=== PATIENT | male | born 1955 | race Caucasian/White ===

== ENCOUNTER 2019-10-29 00:20 | Outpatient (CLI) | payer BC, SELFPAY ==
[2019-10-29 17:00] LABS: SARS-CoV-2 RNA PCR Negative
== END 2019-10-29 00:21 | disposition home or self-care (01) ==
LOC: ANHCOVIDDT 00:20
PROVIDERS: PCP Internal Medicine; Visit Provider Surgery
DX: Z20.828 Contact with and (suspected) exposure to other viral communicable diseases (principal); Z01.812 Encounter for preprocedural laboratory examination
CPT/HCPCS: 87635; C9803; U0003

== ENCOUNTER 2019-10-31 00:28 | Day surgery (SDC) | payer BC, SELFPAY ==
[2019-10-26 13:52] VITALS: BMI 26.5
[2019-10-31 09:57] VITALS: BP 125/89; PULSE 80; RESP 18; TEMP 36.4; O2SAT 97; BMI 27.5
[2019-10-31] MEDS: LACTATED RINGERS 1,000 ML 150 ML IV CONT (10:09)
--- NOTE | 2019-10-31 10:33 | WPDANESEPPF ---
Anes - Initial Pre Proc Eval Procedure: Operation Date: 10/31/19 14:00 Proposed Procedures p Esophagogastroduodenoscopy - Kingsley Lanza MD Date/Time: 10/31/19 10:33 Surgeon: Kingsley Lanza MD Pre Op Diagnosis: GERD, dysphagia Patient Data Age: 63 Gender: M Height: 5 ft 10 in Weight: 87 kg Last Vital Signs Temp 36.4 C 10/31/19 09:57 Pulse 80 10/31/19 09:57 Resp 18 10/31/19 09:57 BP 125/89 10/31/19 09:57 Pulse Ox 97 10/31/19 09:57 Allergies Allergy/AdvReac Type Severity Reaction Status Date / Time No Known Allergies Allergy Verified 10/31/19 09:52 Home Medications Medication Instructions Recorded Confirmed Type rosuvastatin 10 mg PO DAILY 10/26/19 10/31/19 History tamsulosin 4 mg PO DAILY 10/26/19 10/31/19 History Patient hx anesthesia problems: none Family hx anesthesia problems: none [facility] Past Medical History Medical History (Updated 10/31/19 @ 10:33 by Conner Haley MD) Overweight Surgical History Surgical History (Updated 10/31/19 @ 10:33 by Conner Haley MD) H/O arthroscopic knee surgery Anes - Eval Final PreProcedure Day of Procedure 10/31/19 10:33 Patient weight: overweight Heart: regular rate and rhythm Lungs: clear to auscultation Airway: Mallampati scale class II and other (chipped #9 tooth) Neurological: alert and oriented Last oral intake: >/= 8 hours ASA classification: II Emergent: no Anesthetic plan: proceed Anesthesia type and monitoring: general GIVS and standard monitoring Informed Consent: The patient's anesthetic plan and its attendant risks and benefits were discussed with the patient/family/POA. Questions were solicited and answers provided to the satisfaction of the patient/family/POA.
[2019-10-31] MEDS: BENZOCAINE (*SP) 60 ML SPRAY CAN (HURRICAINE) 1 SPRAY MUCOUS MEM (11:22)
--- NOTE | 2019-10-31 11:22 | PM.HPGS ---
History of Present Illness History of Present Illness Consent: Risks, benefits, and alternatives of an upper GI endoscopy with possible biopsies have been discussed and questions answered. Patient agrees to proceed with procedure. Chief complaint: GERD, dysphagia Narrative: Omar Cross is a 63 year old male who has had a long history of GE reflux. He also has a lot of postnasal drip drainage in occasionally coughs up some blood. He does not like the way it looks. He does take some mechanical precautions to prevent GERD when he lays down to sleep. He is on a moped cares albeit only takes it p.r.n. does not take it routinely. He is referred by Dr. Sánchez his PCP at this time for upper GI endoscopy to rule out esophagitis / Proctor's esophagus and other upper GI problems. He knows we made test for H pylori. Review of Systems Constitutional: Constitutional: Reports no additional constitutional complaints, Reports fatigue and Denies malaise Eyes: Eyes: Denies change in vision and Denies loss of vision ENT: Reports Normal hearing present, Denies change in voice, Denies dizziness, Denies hoarseness and Denies sore throat Cardiovascular: Cardiovascular: Denies chest pain, Denies leg edema and Denies dyspnea Respiratory: Respiratory: Denies cough, Denies dyspnea and Denies wheezing Gastrointestinal: Gastrointestinal: Denies hematochezia, Denies change in bowel habits and Denies heartburn Genitourinary: Genitourinary: Denies urinary frequency and Denies urinary incontinence Neurologic: Reports Normal hearing present, Denies confusion, Denies dizziness, Denies loss of vision, Denies memory loss and Denies seizure-like activity Psychiatric: Psychiatric: Denies confusion, Denies depression and Denies memory loss Endocrine: Endocrine: Denies cold intolerance and Reports fatigue Hematologic/Lymphatic: Hematologic/Lymphatic: Denies easy bleeding and Denies easy bruising Allergic/Immunologic: Allergic/Immunologic: Denies wheezing PMFSH Past Medical History Medical History (Updated 10/31/19 @ 11:47 by Kingsley Lanza MD) GERD (gastroesophageal reflux disease) (Unknown) Overweight Post-nasal discharge Surgical History Surgical History (Updated 10/31/19 @ 10:33 by Conner Haley MD) H/O arthroscopic knee surgery Meds Home Medications and Allergies Home Medications Medication Instructions Recorded Confirmed Type rosuvastatin 10 mg PO DAILY 10/26/19 10/31/19 History tamsulosin 4 mg PO DAILY 10/26/19 10/31/19 History Allergies Allergy/AdvReac Type Severity Reaction Status Date / Time No Known Allergies Allergy Verified 10/31/19 09:52 Vital Signs Vital Signs - 24 hr 10/31/19 09:57 Temperature 36.4 C Pulse Rate 80 Respiratory Rate 18 Blood Pressure 125/89 Pulse Oximetry 97 Exam Const: General: cooperative, healthy appearing, no acute distress, well developed and alert; No confusion Nutritional Appearance: well nourished Orientation/consciousness: patient oriented x3 and No confusion Limitations: no limitations HENMT: Head: normal to inspection, normocephalic and atraumatic Ears: hearing grossly normal bilaterally General nose exam: Normal external nose present Face and sinus: no edema Mouth: Yes Normal oral and palatal mucosa present and Yes lip normal Throat: posterior oropharynx normal Eyes: General: appearance normal, both eyes and all related structures Sclera: sclerae normal Pupils: Equal, round and reactive pupils present EOM: EOMs intact bilaterally Neck: Neck: normal visual inspection, no lymphadenopathy, trachea midline and supple Resp: Effort & Inspection: normal respiratory effort and able to speak in complete sentences Auscultation: clear to auscultation bilaterally Cardio: Jugular venous distension: no JVD Rate: regular rate Rhythm: regular rhythm GI: Inspection: normal to inspection GI Palp: Yes Soft to palpation, No Tenderness to palpation present (GI), No Guard
[2019-10-31 11:50] VITALS: BP 118/71; PULSE 80; RESP 19; O2SAT 92
[2019-10-31 12:00] VITALS: BP 134/82; PULSE 78; RESP 25; O2SAT 94
[2019-10-31 12:07] VITALS: PULSE 79; RESP 23; O2SAT 95
== END 2019-10-31 12:40 | disposition home or self-care (01) ==
PROVIDERS: PCP Internal Medicine; Visit Provider Surgery
PROC: 0DJ08ZZ Inspection of Upper Intestinal Tract, Via Natural or Artificial Opening Endoscopic (ICD-10-PCS; CPT 43235; principal; 2019-10-31 14:00)
DX: K21.0 Gastro-esophageal reflux disease with esophagitis (principal); K31.7 Polyp of stomach and duodenum; K29.50 Unspecified chronic gastritis without bleeding; K29.80 Duodenitis without bleeding
CPT/HCPCS: 43239; 87081; 88305; J2704; J7120

== ENCOUNTER 2019-12-24 01:40 | Outpatient (CLI) | payer BC, SELFPAY ==
[2019-12-24 18:20] LABS: SARS-CoV-2 RNA PCR Negative
== END 2019-12-24 01:41 | disposition home or self-care (01) ==
LOC: ANHCOVIDDT 01:40
PROVIDERS: PCP Internal Medicine; Visit Provider Surgery
DX: Z01.812 Encounter for preprocedural laboratory examination (principal); Z11.59 Encounter for screening for other viral diseases
CPT/HCPCS: 87635; C9803; U0003

== ENCOUNTER 2019-12-26 01:14 | Day surgery (SDC) | payer BC, SELFPAY ==
[2019-12-20 14:54] VITALS: BMI 27.8
[2019-12-26 11:40] VITALS: BP 140/84; PULSE 73; RESP 18; TEMP 36.7; O2SAT 98
[2019-12-26] MEDS: LACTATED RINGERS 1,000 ML 150 ML IV CONT (11:48)
--- NOTE | 2019-12-26 12:35 | WPDANESEFPP ---
Anes - Eval Final PreProcedure Day of Procedure 12/26/19 12:35 Patient weight: overweight Heart: regular rate and rhythm Lungs: clear to auscultation Airway: Mallampati scale class II Neurological: alert and oriented Last oral intake: >/= 8 hours ASA classification: II Emergent: no Anesthetic plan: proceed Anesthesia type and monitoring: general GIVS and standard monitoring Informed Consent: The patient's anesthetic plan and its attendant risks and benefits were discussed with the patient/family/POA. Questions were solicited and answers provided to the satisfaction of the patient/family/POA.
--- NOTE | 2019-12-26 12:47 | WPDHPUPDATE1 ---
History and Physical Update Update Date/Time: 12/26/19 12:47 History and Physical has been reviewed, including an updated exam of the patient. There are NO changes in the patient's condition. Risks, benefits, and alternatives of an EGD with possible biopsies have been discussed and questions answered. Patient agrees to proceed with procedure.
[2019-12-26] MEDS: BENZOCAINE (*SP) 60 ML SPRAY CAN (HURRICAINE) 1 SPRAY MUCOUS MEM (12:52)
[2019-12-26 13:11] VITALS: BP 107/64; PULSE 79; RESP 15; O2SAT 97
[2019-12-26 13:21] VITALS: BP 110/72; PULSE 79; RESP 18; O2SAT 97
[2019-12-26 13:31] VITALS: BP 130/83; PULSE 78; RESP 16; O2SAT 97
== END 2019-12-26 13:45 | disposition home or self-care (01) ==
PROVIDERS: PCP Internal Medicine; Visit Provider Surgery
PROC: 0DJ08ZZ Inspection of Upper Intestinal Tract, Via Natural or Artificial Opening Endoscopic (ICD-10-PCS; CPT 43235; principal; 2019-12-26 13:00)
DX: Z09 Encounter for follow-up examination after completed treatment for conditions other than malignant neoplasm (principal); K22.70 Barrett's esophagus without dysplasia; K21.0 Gastro-esophageal reflux disease with esophagitis
CPT/HCPCS: 43239; 87081; 88305; J2405; J2704; J7120

== ENCOUNTER → 2020-07-19 01:21 | Outpatient (CLI) | payer BC, SELFPAY ==
[2020-07-19 19:48] LABS: SARS-CoV-2 RNA PCR Negative
== END ==
PROVIDERS: PCP Internal Medicine; Visit Provider Surgery
DX: Z01.812 Encounter for preprocedural laboratory examination (principal); Z20.822 Contact with and (suspected) exposure to COVID-19
CPT/HCPCS: C9803; U0003; U0005

== ENCOUNTER 2020-07-22 01:35 | Day surgery (SDC) | payer BC, SELFPAY ==
[2020-07-16 14:03] VITALS: BMI 27.5
[2020-07-22 11:06] VITALS: BP 140/89; PULSE 81; RESP 16; TEMP 36.7; O2SAT 98; BMI 27.9
[2020-07-22] MEDS: LACTATED RINGERS 1,000 ML 150 ML IV CONT (11:18)
--- NOTE | 2020-07-22 11:22 | WPDANESEPPF ---
Anes - Initial Pre Proc Eval Procedure: Operation Date: 07/22/20 12:30 Proposed Procedures p Esophagogastroduodenoscopy - Kingsley Lanza MD Date/Time: 07/22/20 11:22 Surgeon: Kingsley Lanza MD Pre Op Diagnosis: Dysphagia, GERD Patient Data Age: 64 Gender: M Height: 5 ft 10 in Weight: 88.3 kg Last Vital Signs Temp 36.7 C 07/22/20 11:06 Pulse 81 07/22/20 11:06 Resp 16 07/22/20 11:06 BP 140/89 07/22/20 11:06 Pulse Ox 98 07/22/20 11:06 Allergies Allergy/AdvReac Type Severity Reaction Status Date / Time No Known Allergies Allergy Verified 07/22/20 11:05 Home Medications Medication Instructions Recorded Confirmed Type tamsulosin 0.4 mg PO DAILY 10/26/19 07/22/20 History meloxicam 15 mg tablet 15 mg PO DAILY 12/05/19 07/22/20 History pantoprazole 40 mg PO DAILY 07/16/20 07/22/20 History rosuvastatin 10 mg PO DAILY 07/16/20 07/22/20 History Patient hx anesthesia problems: none Family hx anesthesia problems: none PMFSH Past Medical History Medical History GERD (gastroesophageal reflux disease) (Unknown) Overweight Post-nasal discharge Surgical History Surgical History H/O arthroscopic knee surgery History of esophagogastroduodenoscopy (EGD) Family History Family History Mother Colon cancer Father Heart attack Hypertension Social History Social History Smoking status: Never smoker Alcohol intake: current Substance use: never Substance use type: does not use Living arrangements: with family 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 Questions were solicited and answers provided to the satisfaction of the patient/family/POA.
--- NOTE | 2020-07-22 11:40 | PM.HPGS ---
History of Present Illness History of Present Illness Consent: Risks, benefits, and alternatives of an EGD with biopsies of the esophagus and GE junction have been discussed and questions answered. Patient agrees to proceed with procedure. Chief complaint: Dysphagia, GERD Narrative: Omar Cross is a 64 year old male who has a history of reflux esophagitis. 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 At this time he continues on a PPI once a day. He returns at this time for surveillance EGD and biopsies of his esophagus to watch out for dysplasia. At this time the patient states that his symptoms seem to be in fairly good control and he is still following precautions to try to reduce any reflux. Review of Systems Constitutional: Constitutional: Reports no additional constitutional complaints, Reports fatigue and Denies malaise Eyes: Eyes: Denies change in vision and Denies loss of vision ENT: Reports Normal hearing present, Denies change in voice, Denies dizziness, Denies hoarseness and Denies sore throat Cardiovascular: Cardiovascular: Denies chest pain, Denies leg edema and Denies dyspnea Respiratory: Respiratory: Denies cough, Denies dyspnea and Denies wheezing Gastrointestinal: Gastrointestinal: Denies hematochezia, Denies change in bowel habits and Denies heartburn Comments: History of GE reflux now controlled with medications Genitourinary: Genitourinary: Denies urinary frequency and Denies urinary incontinence Neurologic: Reports Normal hearing present, Denies confusion, Denies dizziness, Denies loss of vision, Denies memory loss and Denies seizure-like activity Psychiatric: Psychiatric: Denies confusion, Denies depression and Denies memory loss Endocrine: Endocrine: Denies cold intolerance and Reports fatigue Hematologic/Lymphatic: Hematologic/Lymphatic: Denies easy bleeding and Denies easy bruising Allergic/Immunologic: Allergic/Immunologic: Denies wheezing PMFSH Past Medical History Medical History GERD (gastroesophageal reflux disease) (Unknown) Overweight Post-nasal discharge Surgical History Surgical History H/O arthroscopic knee surgery History of esophagogastroduodenoscopy (EGD) Family History Family History Mother Colon cancer Father Heart attack Hypertension Social History Social History Smoking status: Never smoker Alcohol intake: current Substance use: never Substance use type: does not use Living arrangements: with family 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) Gender identity (if verbalized by the patient): Male Spiritual care concerns: No Meds Home Medications and Allergies Home Medications Medication Instructions Recorded Confirmed Type tamsulosin 0.4 mg PO DAILY 10/26/19 07/22/20 History meloxicam 15 mg tablet 15 mg PO DAILY 12/05/19 07/22/20 History pantoprazole 40 mg PO DAILY 07/16/20 07/22/20 History rosuvastatin 10 mg PO DAILY 07/16/20 07/22/20 History Allergies Allergy/AdvReac Type Severity Reaction Status Date / Time No Known Allergies Allergy Verified 07/22/20 11:05 Vital Signs Vital Signs - 24 hr 07/22/20 11:06 Temperature 36.7 C Pulse Rate 81 Respiratory Rate 16 Blood Pressure 140/89 Pulse Oximetry 98 Exam Const: General: cooperative, healthy appearing, no acute distress, well developed and alert; No confusion Nutritional Appearance: well nourished Orientation/consciousness: patient oriented x3 and No confusion Limitations: no limitations HENMT: Head: normal to inspection, normocephalic and atraumatic Ears: hearing grossly normal bilaterally General nose exam: Normal external nose present Face and sinus: no edema Mouth: Yes Normal oral and palatal muco
--- NOTE | 2020-07-22 12:28 | WPDHPUPDATE1 ---
History and Physical Update Update Date/Time: 07/22/20 12:28 History and Physical has been reviewed, including an updated exam of the patient. There are NO changes in the patient's condition. Risks, benefits, and alternatives have been discussed and questions answered. Patient agrees to proceed with procedure.
[2020-07-22] MEDS: BENZOCAINE (*SP) 60 ML SPRAY CAN (HURRICAINE) 1 SPRAY MUCOUS MEM (12:33)
[2020-07-22 12:54] VITALS: BP 103/64; PULSE 86; RESP 16; O2SAT 92
[2020-07-22 13:04] VITALS: BP 102/62; PULSE 83; RESP 18; O2SAT 91
[2020-07-22 13:14] VITALS: BP 117/68; PULSE 82; RESP 22; O2SAT 95
[2020-07-22 13:24] VITALS: BP 118/79; PULSE 78; RESP 20; O2SAT 95
== END 2020-07-22 13:41 | disposition home or self-care (01) ==
PROVIDERS: PCP Internal Medicine; Visit Provider Surgery
PROC: 0DJ08ZZ Inspection of Upper Intestinal Tract, Via Natural or Artificial Opening Endoscopic (ICD-10-PCS; CPT 43235; principal; 2020-07-22 12:30)
DX: R13.10 Dysphagia, unspecified (principal); K21.9 Gastro-esophageal reflux disease without esophagitis; K44.9 Diaphragmatic hernia without obstruction or gangrene; Z87.19 Personal history of other diseases of the digestive system; R09.82 Postnasal drip; K42.9 Umbilical hernia without obstruction or gangrene
CPT/HCPCS: 43239; 88305; C9803; J2704; J7120; U0003; U0005

== ENCOUNTER 2021-07-23 08:20 | Outpatient (CLI) | payer BC, SELFPAY ==
[2021-07-23 08:31] LABS: Basophils Absolute Auto 0.04 K/mm3 (0.00-0.10); Basophils Percent Auto 0.7 % (0.0-1.0); Eosinophils Absolute Auto 0.15 K/mm3 (0.02-0.50); Eosinophils Percent Auto 2.5 % (1.0-6.0); Hematocrit 43.4 % (40.0-54.0); Hemoglobin 14.2 g/dL (14.0-18.0); Immature Granulocyte Absolute 0.03 K/mm3 (0.00-0.00); Immature Granulocyte Percent A 0.5 % (0.0-0.0); Lymphocytes Absolute Auto 1.67 K/mm3 (1.10-4.50); Lymphocytes Percent Auto 27.5 % (18.0-42.0); Mean Corpuscular HGB Conc 32.7 g/dL (32.0-36.0); Mean Corpuscular Hemoglobin 26.2 pg (27.0-31.0); Mean Corpuscular Volume 79.9 fL (78.0-102.0); Mean Platelet Volume 9.1 fl (8.7-11.0); Monocytes Absolute Auto 0.36 K/mm3 (0.10-0.90); Monocytes Percent Auto 5.9 % (2.0-11.0); Neutrophils Absolute Auto 3.8 K/mm3 (1.7-7.2); Neutrophils Percent Auto 62.9 % (50.0-70.0); Platelet Count Result 342 K/mm3 (150-420); Red Blood Count 5.43 M/mm3 (4.70-6.10); Red Cell Distribution Width 13.9 % (11.6-14.4); White Blood Count 6.1 K/mm3 (4.8-10.8)
[2021-07-23 09:07] LABS: Alanine Aminotransferase 31 U/L (16-63); Albumin Level 3.8 g/dL (3.4-5.0); Alkaline Phosphatase 104 U/L (46-116); Anion Gap 12 mmol/L (8-16); Aspartate Amino Transferase 13 U/L (15-37); Bilirubin,Total 0.3 mg/dL (0.00-1.00); Blood Urea Nitrogen 12 mg/dL (7-18); Calcium 8.7 mg/dL (8.5-10.1); Carbon Dioxide 26 mmol/L (21-32); Chloride 107 mmol/L (98-108); Estimated Glomerular Filt Rate > 60; Glucose 107 mg/dL (70-99); Osmolality Calculated 299 mOsm/kg (285-295); Sodium 145 mmol/L (136-145); Total Protein 7.3 g/dL (6.4-8.2)
== END 2021-07-23 08:21 | disposition home or self-care (01) ==
LOC: CHSLAB 08:22
PROVIDERS: PCP Internal Medicine; Visit Provider Surgery
DX: Z01.818 Encounter for other preprocedural examination (principal)
CPT/HCPCS: 36415; 80053; 85025

== ENCOUNTER 2021-07-28 01:36 | Day surgery (SDC) | payer BC, SELFPAY ==
[2021-07-23 13:24] VITALS: BMI 29.7
[2021-07-28 11:13] VITALS: BP 151/87; PULSE 77; RESP 18; TEMP 36.1; O2SAT 93
[2021-07-28] MEDS: LACTATED RINGERS 1,000 ML 150 ML IV CONT (11:13)
--- NOTE | 2021-07-28 13:15 | WPDHPUPDATE1 ---
History and Physical Update Update Date/Time: 07/28/21 13:15 History and Physical has been reviewed, including an updated exam of the patient. There are NO changes in the patient's condition. Risks, benefits, and alternatives have been discussed and questions answered. Patient agrees to proceed with procedure.
[2021-07-28 13:53] VITALS: BP 133/83; PULSE 74; RESP 21; O2SAT 96
[2021-07-28 14:03] VITALS: BP 143/96; PULSE 72; RESP 19; O2SAT 98
[2021-07-28 14:13] VITALS: BP 152/96; PULSE 70; RESP 19; O2SAT 98
--- NOTE | 2021-07-28 14:49 | SUR.PHASEII ---
Per Dr. Lanza, pt can discharge home without him coming to talk to the pt. Dr. Lanza stated he will call the pt once he is back in the office if the pt decides not to wait to talk to him.
== END 2021-07-28 15:06 | disposition home or self-care (01) ==
PROVIDERS: PCP Internal Medicine; Visit Provider Surgery
PROC: 0DJ08ZZ Inspection of Upper Intestinal Tract, Via Natural or Artificial Opening Endoscopic (ICD-10-PCS; CPT 43235; principal; 2021-07-28 13:00)
DX: K21.00 Gastro-esophageal reflux disease with esophagitis, without bleeding (principal); K22.70 Barrett's esophagus without dysplasia; K42.9 Umbilical hernia without obstruction or gangrene
CPT/HCPCS: 43239; 88305; J2704; J7120

== ENCOUNTER 2024-09-03 00:44 | Day surgery (SDC) | payer MEDICARE, SELFPAY ==
[2024-08-30 11:06] VITALS: BMI 27.3
--- OUTSIDE RECORDS SUMMARY | 2024-09-03 00:47 | XMS_ITS | Clinical Summary ---
Author Organization [facility] Address [address] [place] [address] Care Team Providers Care Adult Educator Name Role Phone Nando Henry MD Unavailable [phone] Clarisse Sánchez MD Primary Care Provider [phone] Source Comments [facility],non-owned Affiliates and Associated Physician Practices is amultiple site organization consisting of ambulatory clinics and hospital sitesin [place], [place], [place] and [place]. This disclosure is being madepursuant to the Care Everywhere program and may not contain all information available regarding this patient. Last updated 18.[facility] Allergies No known active allergies Medications * Be aware that medications may not be up to date on this document. Alwaysverify current medications with the patient. TAMSULOSIN HCL PO Active Fluticasone Propionate (FLONASE NA) Active meloxicam (MOBIC) 15 MG tablet TAKE ONE TABLET BY MOUTH DAILY 30 tablet 5 06/16/2021 Active Active Problems Problem Noted Date Diagnosed Date Primary osteoarthritis of both knees 10/30/2019 Social History Tobacco Use Types Packs/Day Years Used Date Smoking Tobacco: Never Assessed Sex and Gender Information Value Date Recorded Sex Assigned at Not on file Legal Sex Male 3:51 PM CDT Gender Identity Not on file Sexual Orientation Not on file Last Filed Vital Signs Vital Sign Reading Time Taken Comments Blood Pressure - - Pulse - - Temperature - - Respiratory Rate - - Oxygen Saturation - - Inhaled Oxygen Concentration - - Weight 87.5 kg (193 lb) 10/30/2019 12:37 PM CDT Height 177.8 cm (5' 10 ) 10/30/2019 12:37 PM CDT Body Mass Index 27.69 10/30/2019 12:37 PM CDT Plan of Treatment Health Maintenance Due Date Last Done Comments COLOGUARD (AGES 45-75) - COL ON CA SCREENING 1957 COLON MONITORING 1957 COLONOSCOPY - COLON CA SCREENING 1957 CT COLONOGRAPHY - COLON CA SCREENING 1957 Colorectal Cancer Screening 1957 FIT - COLON CA SCREENING 1957 FLEX SIG - COLON CA SCREENING 1957 LIPID TESTING 1957 HEPATITIS C SCREENING 12/13/1975 DTAP/TDAP/TD VACCINES (1 - Tdap) 1976 PNEUMOCOCCAL VACCINE 50+ (1 of 1 - PCV) 12/18/2007 ZOSTER VACCINE (1 of 2) 12/18/2007 SCREENING FOR DIABETES 10/30/2019 COVID-19 VACCINE (1 - 2023-2 5 season) 2024 DEPRESSION SCREENING 05/16/2024 INFLUENZA VACCINE (Season Ended) 2025 Respiratory Syncytial Virus (RSV) Vaccine Pt: or over 60 yrs (1 - 1-dose 75+ series) 2032 HEPATITIS B VACCINE Aged Out No longe r eligible based on patient's age to complete this topic HIB VACCINE Aged Out No longer eligi ble based on patient's age to complete this topic HPV VACCINE Aged Out No longer eligi ble based on patient's age to complete this topic MENINGOCOCCAL (Group B) VACC INE SHARED DECISION-MAKING Aged Out No longer eligibl e based on patient's age to complete this topic MENINGOCOCCAL GROUPS A/C/Y/W VACCINE Aged Out No longer eligible b ased on patient's age to complete this topic Insurance [employer] Care Teams Adult Educator Relationship Specialty Start Date [place] Date Clarisse Sán[place] [id number] [place] [address] PCP - General 08/01/20 [place] [id number] [place] [address] Orthopedic Surgery 10/30/19
[2024-09-03 07:27] VITALS: BP 138/94; PULSE 69; RESP 16; TEMP 36.3; O2SAT 99
[2024-09-03] MEDS: LACTATED RINGERS 1,000 ML 150 ML IV CONT (07:38)
--- NOTE | 2024-09-03 07:58 | P.PNAN_ITS ---
Anes - Initial Pre Proc Eval Procedure: Operation Date: 09/03/24 08:30 Proposed Procedures p Esophagogastroduodenoscopy - Federico Roberson DO Date/Time: 09/03/24 07:58 Surgeon: Federico Roberson DO Pre Op Diagnosis: Proctor's esophagus Patient Data Age: 68 Gender: M Height: 1.8 m Weight: 89.7 kg Last Vital Signs Temp 36.3 C L 09/03/24 07:27 Pulse 69 09/03/24 07:27 Resp 16 09/03/24 07:27 BP 138/94 H 09/03/24 07:27 Pulse Ox 99 09/03/24 07:27 O2 Del Method Room Air 09/03/24 07:27 Allergies Allergy/AdvReac Type Severity Reaction Status Date / Time No Known Allergies Allergy Verified 09/03/24 07:26 Home Medications ?Medication ?Instructions ?Recorded ?Confirmed ?Type tamsulosin 0.4 mg capsule 0.4 mg PO DAILY 10/26/19 09/03/24 History meloxicam 15 mg tablet 15 mg PO DAILY 12/05/19 09/03/24 History rosuvastatin 10 mg tablet 10 mg PO DAILY 07/16/20 09/03/24 History pantoprazole 40 mg tablet,delayed 40 mg PO DAILY 08/30/24 09/03/24 History release Patient hx anesthesia problems: none Family hx anesthesia problems: none Results Review: All pre-operative results and documents have been reviewed as part of the pre- operative evaluation. COUNT INCLUDES THE [facility] Past Medical History Medical History Post-nasal discharge GERD (gastroesophageal reflux disease) (Unknown) Overweight Surgical History Surgical History History of esophagogastroduodenoscopy (EGD) H/O arthroscopic knee surgery Family History Family History Mother Colon cancer Father Heart attack Hypertension Social History Social History Smoking status: Never smoker Alcohol intake: current Drinks per week: 12 Alcohol use details: beer Substance use: never Substance use type: does not use Living arrangements: with family Occupation/Education: retired 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 Informed Consent: The patient's anesthetic plan and its attendant risks and benefits were discussed with the patient/family/POA. Questions were solicited and answers provided to the satisfaction of the patient/family/POA.
--- NOTE | 2024-09-03 08:16 | PM.IMHP ---
H&P: HPI History of Present Illness Date/Time: 09/03/24 08:16 Chief Complaint: Proctor's esophagitis Narrative: this is a 68-year-old man who presents for EGD. 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 He has been on pantoprazole since then. He denies any significant acid reflux or heartburn as long as he continues his medications. He denies any hematemesis. Review of Systems Review of Systems: All systems reviewed & are unremarkable except as noted in HPI and below Constitutional: Constitutional: Denies chills, Denies fever(s), Denies headache(s) and Denies weight loss Eyes: Eyes: Denies change in vision ENT: Denies dizziness, Denies headache(s), Denies neck mass and Denies throat swelling Cardiovascular: Cardiovascular: Denies chest pain, Denies lightheadedness and Denies dyspnea Respiratory: Respiratory: Denies cough, Denies dyspnea and Denies wheezing Gastrointestinal: Gastrointestinal: Denies abdominal pain, Denies change in bowel habits, Denies nausea and Denies vomiting Genitourinary: Genitourinary: Denies hematuria and Denies dysuria Musculoskeletal: Musculoskeletal: Reports as per HPI Integumentary/Breasts: Skin/Breast: Reports as per HPI Neurologic: Denies dizziness and Denies headache(s) Allergic/Immunologic: Allergic/Immunologic: Denies throat swelling and Denies wheezing PMFSH Past Medical History Medical History Post-nasal discharge GERD (gastroesophageal reflux disease) (Unknown) Overweight Surgical History Surgical History History of esophagogastroduodenoscopy (EGD) H/O arthroscopic knee surgery Family History Family History Mother Colon cancer Father Heart attack Hypertension Social History Social History Smoking status: Never smoker Alcohol intake: current Drinks per week: 12 Alcohol use details: beer Substance use: never Substance use type: does not use Living arrangements: with family Occupation/Education: retired Additional occupation/education comments: [employer] ( [employer]) Gender identity (if verbalized by the patient): Male Spiritual care concerns: No Meds Home Medications and Allergies Home Medications ?Medication ?Instructions ?Recorded ?Confirmed ?Type tamsulosin 0.4 mg capsule 0.4 mg PO DAILY 10/26/19 09/03/24 History meloxicam 15 mg tablet 15 mg PO DAILY 12/05/19 09/03/24 History rosuvastatin 10 mg tablet 10 mg PO DAILY 07/16/20 09/03/24 History pantoprazole 40 mg tablet,delayed 40 mg PO DAILY 08/30/24 09/03/24 History release Allergies Allergy/AdvReac Type Severity Reaction Status Date / Time No Known Allergies Allergy Verified 09/03/24 07:26 Vital Signs Vital Signs - 24 hr 09/03/24 07:27 Temperature 97.3 F L Pulse Rate 69 Respiratory Rate 16 Blood Pressure 138/94 H Pulse Oximetry 99 Oxygen Delivery Room Air Exam Const: General: no acute distress and alert Orientation/consciousness: patient oriented x3 HENMT: Head: normocephalic and atraumatic Ears: hearing grossly normal bilaterally Face/Nose/Sinus: Normal nares present Mouth: Yes Normal oral and palatal mucosa present Eyes: Periorbital: periorbital findings normal Sclera: sclerae normal EOM: EOMs intact bilaterally Neck: Neck: normal visual inspection, no lymphadenopathy and trachea midline Chest: Chest palpation & inspection: normal inspection of the chest Resp: Effort & Inspection: normal respiratory effort Auscultation: clear to auscultation bilaterally Cardio: Jugular venous distension: no JVD Rate: regular rate Rhythm: regular rhythm Heart sounds: S1 normal heart sound present and S2 normal heart sound present Peripheral pulses: Peripheral pulses 2+ throughout GI: Inspection: normal to inspection GI Palp: Yes Soft to palpation, No Tenderness to palpation present (GI), No Guarding due to palpation present (GI) and No Rebound tenderness present Percussion: Yes normal to percussion Auscultation: normal bowel sounds : General: Yes no CVA tenderness Back/Spine/Pelvis: Back: no CVA tenderness Neuro: General: patient oriented x3, no focal motor deficits and CN's II-XI intact bilaterally Cognition (Neuro): normal cognition Speech: normal speech Motor exam (neuro): 5/5 motor strength present throughout Extrem: General: capillary refill normal and no clubbing, cyanosis or edema Assessment and Plan Assessment and plan (1) Proctor's esophagus determined by biopsy: Code(s): K22.70 - Proctor's esophagus without dysplasia Status: Acute Assessment and Plan: I have recommended EGD. I have discussed the procedure, risks, benefits, and alternatives. Questions were answered. Patient is agreeable to proceed. (2) GERD (gastroesophageal reflux disease): Onset Date: Unknown Qualifiers: Esophagitis presence: without esophagitis Qualified Code(s): K21.9 - Gastro-esophageal reflux disease without esophagitis Code(s): K21.9 - Gastro-esophageal reflux disease without esophagitis Status: Acute
[2024-09-03 08:35] VITALS: BP 142/75; PULSE 77; RESP 23; O2SAT 95
[2024-09-03 08:45] VITALS: BP 122/88; PULSE 74; RESP 21; O2SAT 94
[2024-09-03 08:55] VITALS: BP 137/92; PULSE 71; RESP 16; O2SAT 97
== END 2024-09-03 09:02 | disposition home or self-care (01) ==
PROVIDERS: PCP Internal Medicine; Visit Provider Surgery
PROC: 0DJ08ZZ Inspection of Upper Intestinal Tract, Via Natural or Artificial Opening Endoscopic (ICD-10-PCS; CPT 43239; principal; 2024-09-03 08:30)
DX: K22.70 Barrett's esophagus without dysplasia (principal); K44.9 Diaphragmatic hernia without obstruction or gangrene; K21.9 Gastro-esophageal reflux disease without esophagitis; Z98.890 Other specified postprocedural states; Z80.0 Family history of malignant neoplasm of digestive organs; Z82.49 Family history of ischemic heart disease and other diseases of the circulatory system
CPT/HCPCS: 43239; 88305; J2704; J7120